=== PATIENT | female | born 1975 | race Native Hawaiian/Other Pacific Islander ===

== ENCOUNTER 2017-09-25 13:37 | Emergency (ER) | payer BC ==
[~2017-09-25] VITALS: Ht 162.6 cm; Wt 611.0 kg
[2017-09-25] MEDS ORDERED: TOPAMAX25 MG OR (13:55)
[2017-09-25 14:00] LABS: PLATELET COUNT 245 K/uL (152-353)
[2017-09-25 14:19] LABS: PARTIAL THROMBOPLASTIN TIME 20.9 SECONDS (24.5-33.6)
[2017-09-25 14:22] LABS: POTASSIUM 3.2 mmol/L (3.6-5.2); SODIUM 138 mmol/L (136-145)
[2017-09-25 17:45] VITALS: BP 118/73; TEMP 98
== END 2017-09-25 17:45 | disposition short-term general hospital (02) ==
LOC: ED 13:37
PROVIDERS: Emergency Medicine
DX: R55 Syncope and collapse (principal); R56.9 Unspecified convulsions; R20.2 Paresthesia of skin; R47.01 Aphasia; R53.1 Weakness; R47.81 Slurred speech
CPT/HCPCS: 36415; 80053; 80307; 81000; 82150; 82550; 83690; 84484; 85027; 85610; 85730; 93005; 96372; 96374; 96375; 99284; J1885; J2360; J2405

== ENCOUNTER 2017-09-25 17:50 | Outpatient (CLI) | payer BC ==
[~2017-09-25 17:50] MED LIST: TOPAMAX25 MG OR
== END 2017-09-25 19:00 | disposition short-term general hospital (02) ==
LOC: AMB 17:50
DX: R55 Syncope and collapse (principal); R56.9 Unspecified convulsions; R20.2 Paresthesia of skin; R47.01 Aphasia; R53.1 Weakness; R47.81 Slurred speech
CPT/HCPCS: A0425; A0427

== ENCOUNTER 2019-08-11 09:16 | Emergency (ER) | payer BC ==
[~2019-08-11] VITALS: Ht 162.6 cm; Wt 47.6 kg
[2019-08-11 10:22] LABS: PLATELET COUNT 207 K/uL (152-353)
[2019-08-11 10:23] LABS: POTASSIUM 3.8 mmol/L (3.6-5.2)
[2019-08-11] MEDS ORDERED: LEVE500T5 PO (10:41)
[2019-08-11] MEDS ORDERED: TOPAMAX100 MG PO (10:45)
[2019-08-11 12:05] VITALS: BP 126/88
== END 2019-08-11 12:05 | disposition home or self-care (01) ==
LOC: ED 09:16
PROVIDERS: Emergency Medicine
DX: G56.91 Unspecified mononeuropathy of right upper limb (principal)
CPT/HCPCS: 80053; 85027; 99283

== ENCOUNTER 2019-08-17 18:11 | Outpatient (CLI) | payer BC ==
[~2019-08-17 18:11] MED LIST changes: +LEVE500T5 PO; +TOPAMAX100 MG PO
[2019-08-17 18:55] LABS: PLATELET COUNT 228 K/uL (152-353)
[2019-08-17 19:35] LABS: POTASSIUM 3.4 mmol/L (3.6-5.2)
== END 2019-08-17 21:54 | disposition home or self-care (01) ==
LOC: LAB 18:11
PROVIDERS: Nurse Practitioner Family
DX: M62.81 Muscle weakness (generalized) (principal); M79.7 Fibromyalgia; R76.0 Raised antibody titer
CPT/HCPCS: 36415; 80053; 81000; 82085; 82550; 82607; 82746; 82784; 83735; 84439; 84443; 84481; 85027; 85651; 86140; 86160; 86225

== ENCOUNTER 2019-08-23 16:03 | Outpatient (CLI) | payer BC ==
[2019-08-23 16:28] LABS: PLATELET COUNT 233 K/uL (152-353)
[2019-08-23 16:41] LABS: POTASSIUM 3.5 mmol/L (3.6-5.2)
== END 2019-08-23 20:00 | disposition home or self-care (01) ==
LOC: LABW 16:03
PROVIDERS: Nurse Practitioner
DX: R25.2 Cramp and spasm (principal)
CPT/HCPCS: 36415; 80053; 82542; 84550; 85027; 85651; 86140

== ENCOUNTER 2019-08-24 12:09 | Emergency (ER) | payer BC ==
[~2019-08-24] VITALS: Ht 162.6 cm; Wt 47.6 kg
[2019-08-24 12:16] VITALS: TEMP 98.4
[2019-08-24 13:08] LABS: PLATELET COUNT 200 K/uL (152-353)
[2019-08-24 16:02] VITALS: BP 102/73
== END 2019-08-24 16:03 | disposition home or self-care (01) ==
LOC: ED 12:09
PROVIDERS: Family Medicine
DX: R51 Headache (principal); R53.83 Other fatigue
CPT/HCPCS: 80053; 81000; 85027; 85379; 99283

== ENCOUNTER 2020-10-06 15:51 | Outpatient (CLI) | payer BC | END 2020-10-06 19:54 | disposition home or self-care (01) | LOC: RAD 15:51 | PROVIDERS: ATTEND Nurse Practitioner | DX: R05 Cough (principal) ==

== ENCOUNTER 2021-03-21 11:30 | Outpatient (CLI) | payer BC | END 2021-03-21 20:37 | disposition home or self-care (01) | LOC: CT 11:30 | PROVIDERS: ATTEND Nurse Practitioner Family | DX: R10.32 Left lower quadrant pain (principal) ==